=== PATIENT | male | born 2000 | race African-American/Black ===

== ENCOUNTER 2018-09-20 18:02 | Emergency (ER) | payer BC, OTHER ==
[~2018-09-20] VITALS: Ht 195.6 cm; Wt 86.2 kg
[2018-09-20] MEDS ORDERED: ONDANSETRON HCL 4 MG TABLET PO ONE (18:45)
[2018-09-20] MEDS ORDERED: ACETAMINOPHEN 325 MG TABLET PO ONE (19:00)
--- NOTE | 2018-09-20 19:05 | NUR ---
Xray at bedside.
[2018-09-20] MEDS ORDERED: ACETAMINOPHEN 325 MG TABLET ONE (19:08)
[2018-09-20] MEDS ORDERED: ONDANSETRON ODT 4 MG TAB.RAPDIS ONE (19:08)
--- NOTE | 2018-09-20 19:30 | NUR ---
Note rut in EDM - 09/20/18 at 1931 by [facility] Patient discharged to home in stable conditon. Written and verbal after care instructions given. Patient verbalizes understanding of instructions. Pt ambulated out of ER with steady gait, no acute signs of distress, VSS, all belongings taken.
[2018-09-20 19:35] VITALS: BP 107/61
== END 2018-09-20 19:36 | disposition home or self-care (01) ==
LOC: ER 18:02
DX: B34.9 Viral infection, unspecified (principal); R11.2 Nausea with vomiting, unspecified; Z88.8 Allergy status to other drugs, medicaments and biological substances; Z91.010 Allergy to peanuts
CPT/HCPCS: 71045; A4663; Q0162